=== PATIENT | female | born 1970 | race Caucasian/White ===

== ENCOUNTER 2016-07-16 22:27 | Emergency (ER) | payer OTHER ==
[~2016-07-16 22:27] MED LIST: EPINEPHrine HCL (1:10,000) 1 MG/10 ML SYRINGE IV ONE
--- NOTE | 2016-07-16 22:55 | PD ---
HPI Chief Complaint: Code Blue Time Seen by Provider: 22:46 Travel History International Travel<30 days: No Contact w/Intl Traveler<30days: No (unknown) Traveled to known affect area: No (unknown) History of Present Illness HPI This is a 68-gbo-ttwl-old female who is brought in by the paramedics from a long term, for a patient who is in cardiac arrest. Apparently the patient was found unresponsive and with no pulse. CPR was started at [address] when they arrived. It was thought that the patient may have been in cardiac arrest for 5-10 minutes prior. When the patient arrived at the hospital, she had received 5 doses of epinephrine, 1 amp of bicarbonate. She was initially in reported V. fib and shocked into asystole. When she arrived here she was in asystole. [facility] Social History Tobacco Use: No (unknown) Review of Systems ROS Limitations: Intubated Physical Exam Narrative GENERAL: Obese female who is being ventilated through Combitube and chest compressions in progress. SKIN: Focused skin assessment warm/dry. HEAD: Atraumatic. Normocephalic. EYES: Pupils fixed and dilated at 5 mm bilaterally.. No scleral icterus. No injection or drainage. ENT: No nasal bleeding or discharge. Combitube in place. NECK: Trachea midline. No JVD. CARDIOVASCULAR: Asystole on arrival. RESPIRATORY: Decreased breath sounds with the Combitube. Tube was switched out with an ET tube by this physician. There were equal breath sounds after intubation. GASTROINTESTINAL: Abdomen obese, soft. Hepatic and splenic margins not palpable. MUSCULOSKELETAL: No obvious deformities. No clubbing. No cyanosis. No edema. NEUROLOGICAL: GCS of 3. E1, V1, M1. [facility] Medical Decision Making Medical Screen Exam Complete: Yes Emergency Medical Condition: Yes Differential Diagnosis Acute cardiac . Versus pulmonary embolus versus cardiac dysrhythmia versus elect to light abdomen rounded. Narrative Course [age]-year-old female who presents in cardiac arrest. The patient had received 5 rounds of epinephrine prior to arrival. She also received bicarbonate. The patient's blood sugar was above 100. She was given 2 further doses of epinephrine IV. Bedside ultrasound showed no evidence of cardiac activity. Case was discussed with all attendees to see if anyone had any further recommendations for treatment and no one at that time. The patient was pronounced at 2238. Procedures Procedure Narrative Intubated emergently: INTUBATION: The patient was put in optimal position for the procedure. Rapid sequence intubation was initiated by me using 0 milligrams of etomidate IV and 0 milligrams of 0 mg of succinylcholine IV. The patient was intubated with a 7.5 cuffed endotracheal tube. Using the glidescope. Tube placement was confirmed by visualization of the tube and balloon passing through the cords, capnometry and subsequent chest x-ray. Breath sounds were equal and well aerated bilaterally postintubation. No breath sounds over stomach. Bedside ultrasound was performed using the subxiphoid cardiac window. He using the cardiac probe, no cardiac activity was visualized. Patient was pronounced at 20:38 after procedure. Diagnosis Primary Impression: acute cardiopulmonary arrest. Disposition: 20 Condition: Alexandre Bright MD July 16, 2016 22:55
== END 2016-07-17 02:30 | disposition expired ==
LOC: NEPE 22:27 → EDBD 22:27 → NEPE 07-17 02:30
DX: I46.9 Cardiac arrest, cause unspecified (principal)
CPT/HCPCS: 31500; 99285; J0171